=== PATIENT | male | born 1990 | race African-American/Black ===

== ENCOUNTER 2017-04-23 10:24 | Emergency (ER) | payer SELFPAY ==
[~2017-04-23] VITALS: Ht 182.9 cm; Wt 70.0 kg
[~2017-04-23 10:24] MED LIST: DARVOCET-N 100100 MG OR
[2017-04-23 11:13] VITALS: BP 135/81
[2017-04-23] MEDS ORDERED: PREDNISONE50 MG PO (11:15)
[2017-04-23] MEDS ORDERED: CIMETIDINE400 M1 PO (11:15)
[2017-04-23] MEDS ORDERED: BENADRYL 50MG C50 MG PO (11:15)
== END 2017-04-23 11:30 | disposition home or self-care (01) | DRG 916 ==
LOC: ED 10:24
DX: T78.3XXA Angioneurotic edema, initial encounter (principal); R22.2 Localized swelling, mass and lump, trunk